=== PATIENT | female | born 1990 | race Caucasian/White ===

== ENCOUNTER 2016-08-10 13:19 | Inpatient (IN) | payer BC, OTHER ==
[2016-08-10 16:23] LABS: HEMOGLOBIN 13.6 gm/dl (12.3-15.3); RED BLOOD COUNT 4.58 M/UL (4.00-5.10); WHITE BLOOD COUNT 5.4 K/UL (4.5-11.0)
[2016-08-10 16:43] LABS: BUN/CREATININE RATIO 12 (0-10)
[2016-08-12] MEDS ORDERED: MACROBID 100 M100 MG PO (12:45)
[2016-08-12] MEDS ORDERED: KEFLEX500 MG PO (12:46)
== END 2016-08-12 12:22 | disposition home or self-care (01) | DRG 781 ==
LOC: ER1 13:19 → OB 17:20 → ZEROF 17:20 → OB 19:10
PROVIDERS: Physician Assistant; ADMIT Obstetrics & Gynecology
DX: O23.01 Infections of kidney in pregnancy, first trimester (principal); N10 Acute pyelonephritis; N13.30 Unspecified hydronephrosis; Z3A.12 12 weeks gestation of pregnancy
CPT/HCPCS: 36415; 76775; 76815; 80053; 81001; 83605; 85025; 87040; 96365; 96375; 99285; J0696; J2270; J2550; J7050; J7120

== ENCOUNTER → 2016-10-15 | Outpatient (CLI) | payer BC, OTHER ==
[~2016-10-15] MED LIST: KEFLEX500 MG PO; MACROBID 100 M100 MG PO
== END ==
LOC: GENOP 12:59
DX: O99.89 Other specified diseases and conditions complicating pregnancy, childbirth and the puerperium (principal); R10.9 Unspecified abdominal pain; Z3A.21 21 weeks gestation of pregnancy
CPT/HCPCS: 81001; G0463

== ENCOUNTER → 2020-07-27 | Outpatient (CLI) | payer OTHER ==
[~2020-07-27] MED LIST changes: +CATAPRES 0.1MG0.1 MG PO
== END ==
LOC: EROP 15:47
DX: R09.89 Other specified symptoms and signs involving the circulatory and respiratory systems (principal); Z20.822 Contact with and (suspected) exposure to COVID-19
CPT/HCPCS: U0002